=== PATIENT | male | born 1970 | race Caucasian/White ===

== ENCOUNTER 2016-11-09 11:03 | Emergency (ER) | payer OTHER ==
[~2016-11-09] VITALS: Ht 193 cm; Wt 100.0 kg
[2016-11-09 11:04] VITALS: BP 133/91; PULSE 97; RESP 17; TEMP 97.8; O2SAT 98
--- NOTE | 2016-11-09 11:54 | PD ---
HPI Chief Complaint: Laceration/Skin Injury Time Seen by Provider: 11:50 Travel History International Travel<30 days: No Contact w/Intl Traveler<30days: No Traveled to known affect area: No History of Present Illness HPI 46-year-old male presents to the emergency department for evaluation of lacerations to his left second and third fingers that occurred at approximate 1- 2 hours ago. He states he cut them with a skill saw. He went to an urgent care was referred to the emergency department. Patient is unsure of his tetanus immunization is up-to-date. Patient denies any other injury. He has no chronic medical problems and takes no prescribed medications. [facility] Social History Alcohol Use: No Tobacco Use: No Substance Use: No Allergies-Medications (Allergen,Severity, Reaction): Coded Allergies: No Known Allergies (Unverified , 11/09/16) Reported Meds & Prescriptions Reported Meds & Active Scripts Active Lortab (Hydrocodone-Acetaminophen) 5-325 Mg Tab 1 Tab PO Q6H PRN Ibuprofen 800 Mg Tab 800 Mg PO TID PRN Keflex (Cephalexin) 500 Mg Cap 500 Mg PO Q6H 7 Days Review of Systems Except as stated in HPI: all other systems reviewed are Neg Physical Exam Narrative GENERAL: Well-developed well-nourished male patient, ambulatory. Afebrile. SKIN: Warm and dry. Patient has a soft tissue avulsion to the distal aspect of the left second finger. I do not see any exposed bone at this time. The avulsion measures 2 cm x 2 cm. Patient also has (2) 1 centimeter laceration to the distal aspect of the left third finger and a 2.5 centimeter laceration to the left second finger between the DIP and PIP joints. HEAD: Normocephalic. Atraumatic. EYES: No scleral icterus. No injection or drainage. NECK: Supple, trachea midline. No JVD or lymphadenopathy. CARDIOVASCULAR: Regular rate and rhythm without murmurs, gallops, or rubs. Left radial pulse 2+. Capillary refill less than 2 seconds to the digits of the left hand. RESPIRATORY: Breath sounds equal bilaterally. No accessory muscle use. Lungs sounds clear to auscultation. GASTROINTESTINAL: Abdomen soft, non-tender, nondistended. MUSCULOSKELETAL: No cyanosis, or edema. Patient has slightly limited range of motion of the left second and third fingers due to pain. Normal strength in both affected digits. BACK: Nontender without obvious deformity. No CVA tenderness. Data Data Last Documented VS Vital Signs Date Time Temp Pulse Resp B/P Pulse Ox O2 Delivery O2 Flow Rate FiO2 11/09/16 13:16 98 16 137/88 97 Room Air 11/09/16 11:04 97.8 Orders Hand, Complete ([id number]) (11/09/16 ) Tetanus/Diphtheria Tox Adult (Tetanus/Di (11/09/16 12:00) Bupivacaine Pf 0.5% Inj (Marcaine Pf 0.5 (11/09/16 12:00) Lidocaine 1% Inj (50 Ml) (Xylocaine 1% I (11/09/16 12:00) Ondansetron Odt (Zofran Odt) (11/09/16 12:00) Morphine Inj (Morphine Inj) (11/09/16 12:00) Cephalexin (Keflex) (11/09/16 14:00) MDM Medical Decision Making Medical Screen Exam Complete: Yes Emergency Medical Condition: Yes Medical Record Reviewed: Yes Interpretation(s) x-ray left hand - CONCLUSION: Soft tissue injury of the left index finger with suspected small right opaque foreign bodies. Small radiopaque foreign body overlying the second metacarpal on the dorsum of the hand. No significant bone deformity. Differential Diagnosis Laceration versus soft tissue avulsion versus tendon laceration versus open fracture Narrative Course 46-year-old male presents to the emergency department for violation lacerations to his left second and third fingers that occurred approximately 1-2 hours ago using a skill saw. Tetanus immunization is updated. There is no evidence of tendon injury on exam. Patient is given morphine 4 mg IM and Zofran 4 mg by mouth for pain. X-ray of the left hand is ordered and pending. Patient does give verbal consent for laceration repair. X-ray of the left hand shows soft tissue injury of the left index finger with suspected small right opaque foreign bodies; small radiopaque foreign body overlying the second metacarpal on the dorsum of the hand; no significant bone deformity. Patient has no laceration over the second metacarpal. The patient will be discharged with a short-term prescription for Lortab as well as Keflex. He is given first dose of Keflex in the emergency department. Patient is to follow- up with workers comp. Procedures Procedure Narrative LACERATION LOCATION: Left third finger LENGTH: 1 cm NUMBER OF STITCHES/NOEMI: 2 simple interrupted sutures REPAIR: The area of the laceration was prepped with Betadine and sterilely draped. A digital block was done with 1% lidocaine and 0.5% Marcaine. The wound was copiously irrigated and explored without evidence of foreign body, tendon injury or neurovascular injury. The wound was closed using 4-0 Prolene. This was a single layer repair. A sterile dressing was applied. The patient was advised to keep the dressing clean and dry. Patient tolerated the procedure well. LACERATION LOCATION: Left third finger LENGTH: 1 cm NUMBER OF STITCHES/NOEMI: 2 simple interrupted sutures REPAIR: The area of the laceration was prepped with Betadine and sterilely draped. A digital block was done with 1% lidocaine and 0.5% Marcaine. The wound was copiously irrigated and explored without evidence of foreign body, tendon injury or neurovascular injury. The wound was closed using 4-0 Prolene. This was a single layer repair. A sterile dressing was applied. The patient was advised to keep the dressing clean and dry. Patient tolerated the procedure well. LACERATION LOCATION: Left third finger LENGTH: 2.5 cm NUMBER OF STITCHES/NOEMI: 6 simple interrupted sutures REPAIR: The area of the laceration was prepped with Betadine and sterilely draped. A digital block was done with 1% lidocaine and 0.5% Marcaine. The wound was copiously irrigated and explored without evidence of foreign body, tendon injury or neurovascular injury. The wound was closed using 4-0 Prolene. This was a single layer repair. A sterile dressing was applied. The patient was advised to keep the dressing clean and dry. Patient tolerated the procedure well. Diagnosis Primary Impression: Soft tissue avulsion Additional Impression: Finger laceration Qualified Code: S61.219A - Finger laceration, initial encounter Referrals: Primary Care Physician call for appointment Patient Instructions: Care For Your Stitches (ED), Finger Laceration (ED), General Instructions Additional Instructions: Cleaned wound and lacerations twice daily with soap and water and apply over-the -counter antibiotic ointment. Keep clean and dry. Take ibuprofen instructed as needed with food for [id number] pain. Take Lortab as directed as needed for moderate to severe pain. Caution this can make you drowsy so do not drive after taking. Take antibiotic as directed until gone. Suture removal in 7-10 days. He may follow up with her primary care physician or return to the emergency department for this. Follow up with your Worker's Compensation doctor. Return to the emergency department for any acute worsening of symptoms. Med/Other Pt SpecificInfo: Prescription(s) given Scripts Hydrocodone-Acetaminophen (Lortab)5-325 Mg Tab1 Tab PO Q6H PRN (PAIN) #12 TAB Ref 0 Prov:Manjeet Penny MD 11/09/16 Ibuprofen 800 Mg [id number] Mg PO TID PRN (PAIN SCALE 1 TO 10) #21 TAB Ref 0 Prov:Barb Nelson 11/09/16 Cephalexin (Keflex)500 Mg [id number] Mg PO Q6H 7 Days Ref 0 Prov:Barb Nelson 11/09/16 Disposition: 01 DISCHARGE HOME Condition: Stable Barb Nelson Nov 09, 2016 11:54
[2016-11-09] MEDS ORDERED: MORPHINE SULFATE 4 MG/ML INJ IM ONE (12:00)
[2016-11-09] MEDS ORDERED: BUPIVACAINE HCL PF 0.5% 10 ML VIAL INFIL ONE (12:00)
[2016-11-09] MEDS ORDERED: TETANUS/DIPHTHERIA TOXOID ADULT 0.5 ML VIAL IM ONE (12:00)
[2016-11-09] MEDS ORDERED: ONDANSETRON ODT 4 MG TAB PO ONE (12:00)
[2016-11-09] MEDS ORDERED: LIDOCAINE HCL 1% 50 ML VIAL INFIL ONE (12:00)
--- NOTE | 2016-11-09 13:08 | RADRPT ---
EXAM DATE/TIME: 11/09/2016 12:46 [facility] COMPARISON: No previous studies available for comparison. INDICATIONS : Lacerations to left index and middle fingers from skill saw MEDICAL HISTORY : None. SURGICAL HISTORY : None. ENCOUNTER: Initial ACUITY: 1 day PAIN SCORE: 9/10 LOCATION: Left hand FINDINGS: There is soft tissue injury identified involving the tuft of the index finger. There is no significan t bony deformity however small radiopaque foreign bodies are noted. There is a small sliver or opaque structure along the radial side of the distal interphalangeal joint of the index finger. Small metal lic foreign bodies also noted overlying the second metacarpal. CONCLUSION: Soft tissue injury of the left index finger with suspected small right opaque foreign bodies. Small radiopaque foreign body overlying the second metacarpal on the dorsum of the hand. No significant bone deformity. Sanjeev Urbina MD on November 09, 2016 at 13:04 Board Certified Radiologist. This report was verified electronically.
[2016-11-09] MEDS ORDERED: IBUP800T23 PO (13:14)
[2016-11-09] MEDS ORDERED: CEPH-460 PO (13:14)
[2016-11-09 13:16] VITALS: BP 137/88; PULSE 98; RESP 16; O2SAT 97
[2016-11-09] MEDS ORDERED: HYDR-3533 PO (13:16)
[2016-11-09] MEDS ORDERED: CEPHALEXIN MONOHYDRATE 500 MG CAP PO ONE (14:00)
== END 2016-11-09 14:02 | disposition home or self-care (01) ==
LOC: NEPB 11:03
DX: S61.213A Laceration without foreign body of left middle finger without damage to nail, initial encounter (principal); S61.211A Laceration without foreign body of left index finger without damage to nail, initial encounter; Z23 Encounter for immunization; W29.8XXA Contact with other powered hand tools and household machinery, initial encounter; Y99.0 Civilian activity done for income or pay
CPT/HCPCS: 12002; 73130; 90471; 90714; 96372; 99283; J2270

== ENCOUNTER 2017-08-09 12:00 | Emergency (ER) | payer SELFPAY ==
[~2017-08-09] VITALS: Ht 193 cm; Wt 100.0 kg
[~2017-08-09 12:00] MED LIST: CEPH-460 PO; HYDR-3533 PO; IBUP800T23 PO
[2017-08-09 12:02] VITALS: BP 145/73; PULSE 113; RESP 14; TEMP 99; O2SAT 98
[2017-08-09] MEDS ORDERED: VANCOMYCIN INJ 1,000 MG in SODIUM CHLOR 0.9% 250 ML INJ 250 ML IV ONE (12:45)
[2017-08-09 13:14] VITALS: BP 125/76; PULSE 112; RESP 23; O2SAT 96
[2017-08-09] MEDS ORDERED: BACT800T5 PO (14:13)
[2017-08-09] MEDS ORDERED: DOXY100C PO (14:13)
[2017-08-09] MEDS ORDERED: TRAM50TA PO (14:13)
--- NOTE | 2017-08-09 14:26 | PD ---
HPI Chief Complaint: Skin Problem Time Seen by Provider: 12:26 Travel History International Travel<30 days: No Contact w/Intl Traveler<30days: No Traveled to known affect area: No History of Present Illness HPI This patient complains of a skin infection. He has an infection on the right buttock. Duration 3 days. Severity is moderate. He denies fever. He denies ever using IV drugs. He has no immune compromise. He reports being healthy. No exacerbating factors. No alleviating factors. PFSH Past Medical History Medical History: Denies Significant Hx Diminished Hearing: No Past Surgical History Appendectomy: Yes Other Surgery: Yes (LEFT FOOT/ANKLE ) Social History Alcohol Use: No Tobacco Use: No Substance Use: No Allergies-Medications (Allergen,Severity, Reaction): Coded Allergies: No Known Allergies (Unverified , 11/09/16) Reported Meds & Prescriptions Reported Meds & Active Scripts Active Tramadol (Tramadol HCl) 50 Mg Tab 50 Mg PO Q6H PRN Doxycycline Hyclate 100 Mg Cap 100 Mg PO BID Bactrim DS (Sulfamethoxazole-Trimethoprim) 800-160 Mg Tab 1 Tab PO BID Lortab (Hydrocodone-Acetaminophen) 5-325 Mg Tab 1 Tab PO Q6H PRN Ibuprofen 800 Mg Tab 800 Mg PO TID PRN Keflex (Cephalexin) 500 Mg Cap 500 Mg PO Q6H 7 Days Review of Systems General / Constitutional: No: Fever Eyes: No: Visual changes HENT: No: Headaches Cardiovascular: No: Chest Pain or Discomfort Respiratory: No: Shortness of Breath Gastrointestinal: No: Abdominal Pain Genitourinary: No: Dysuria Musculoskeletal: Positive: Pain Skin: No Rash Neurologic: No: Weakness Psychiatric: No: Depression Endocrine: No: Polydipsia Hematologic/Lymphatic: No: Easy Bruising Physical Exam Narrative GENERAL: Well-nourished, well-developed patient in no apparent distress. SKIN: Focused skin assessment reveals no rash and nodules. Skin is Warm and dry. HEAD: Atraumatic. Normocephalic. EYES: Pupils equal and round. No scleral icterus. No injection or drainage. ENT: No nasal bleeding or discharge. Mucous membranes pink and moist. NECK: Trachea midline. No JVD. CARDIOVASCULAR: Regular rate and rhythm. No murmur appreciated. RESPIRATORY: No accessory muscle use. Clear to auscultation. Breath sounds equal bilaterally. GASTROINTESTINAL: Abdomen soft, non-tender, nondistended. Hepatic and splenic margins not palpable. MUSCULOSKELETAL: No obvious deformities. No clubbing. No cyanosis. No edema. NEUROLOGICAL: Awake and alert. No obvious cranial nerve deficits. Motor grossly within normal limits. Normal speech. PSYCHIATRIC: Appropriate mood and affect; insight and judgment normal. Buttock: On the inner aspect of the right buttock is an area of erythema with some induration. There is a tiny area with a little pimple-like lesion that is draining some pus. This is cultured and the pus expressed out. There is no active fluctuance anywhere on this lesion Data Data Last Documented VS Vital Signs Date Time Temp Pulse Resp B/P (MAP) Pulse Ox O2 Delivery O2 Flow Rate FiO2 08/09/17 13:14 112 23 125/76 (92) 96 Room Air 08/09/17 12:02 99.0 Orders Orders Vancomycin Inj (Vancomycin Inj) (08/09/17 12:45) Iv Access Insert/Monitor (08/09/17 12:33) Wound Culture And Gram Stain (08/09/17 12:36) [facility] Medical Decision Making Medical Screen Exam Complete: Yes Emergency Medical Condition: Yes Medical Record Reviewed: Yes Differential Diagnosis Cellulitis, abscess, carbuncle Narrative Course I have reviewed the patient's electronic medical record. Patient has an infection requiring some antibiotic therapy. I don't see anything amenable to incision and drainage beyond culturing a scant amount of discharge from this pimple-like lesion. IV placed I gave him 1 g IV vancomycin Wound culture sent along with Gram stain I'm giving him 10 days of Bactrim DS and doxycycline to cover empirically community-acquired MRSA He'll use warm compresses He should return if he has no improvement in 48 hours or worsens Follow-up with his physician Diagnosis Primary Impression: Cellulitis of right buttock Additional Instructions: The patient was advised to follow up with their physician and return if they worsen. The patient was warned about potential sedation for the medications they will receive on prescription. Use warm compresses Med/Other Pt SpecificInfo: Prescription(s) given Scripts Tramadol (Tramadol) 50 Mg Tab 50 MG PO Q6H Y for PAIN, #15 TAB 0 Refills Prov: Noah Irvin MD 08/09/17 Doxycycline Hyclate (Doxycycline Hyclate) 100 Mg Cap 100 MG PO BID for Infection, #20 CAP 0 Refills Prov: Noah Irvin MD 08/09/17 Sulfamethoxazole-Trimethoprim (Bactrim DS) 800-160 Mg Tab 1 TAB PO BID for Infection, #20 TAB 0 Refills Prov: Noah Irvin MD 08/09/17 Disposition: 01 DISCHARGE HOME Condition: Stable Noah Irvin MD Aug 09, 2017 14:26
[2017-08-09 14:58] VITALS: BP 130/80
== END 2017-08-09 15:29 | disposition home or self-care (01) ==
LOC: NEPE 12:00
DX: L03.317 Cellulitis of buttock (principal); B95.62 Methicillin resistant Staphylococcus aureus infection as the cause of diseases classified elsewhere
CPT/HCPCS: 86403; 87070; 87186; 96365; 99284; J3370; J7050; 87205